=== PATIENT | male | born 1970 | race Caucasian/White ===

== ENCOUNTER 2023-10-24 21:48 | Emergency (ER) | payer OTHER, SELFPAY ==
[2023-10-24] VITALS (13 sets, daily range): BP systolic 106–133; BP diastolic 64–66; PULSE 73–89; RESP 15–18; TEMP 37–38.6; O2SAT 92–96; BMI 34.9
--- NOTE | 2023-10-24 22:08 | ED.FEVER ---
HPI - Fever General Time Seen by Provider: 22:08 Date Seen: 10/24/23 Chief Complaint: Fever Stated Complaint: fever Time Seen by Provider: 10/24/23 22:08 Source: patient and RN notes reviewed Mode of arrival: ambulatory Limitations: no limitations History of Present Illness HPI Narrative: This 53-year-old male is coming to the ER with fever up to 102 at home earlier today, progressive weakness. He did take 1200 mg Tylenol at home about an hour and half ago. He has been running fevers for probably about the last week. He has noticed some increased drainage from his prior trach site but it is not odorous, not colored. He has thyroid cancer history and had a thyroidectomy at [facility] in September 02 2023, this was complicated by a trach which has subsequently been removed. He is felt run down this last week, some intermittent lower abdominal pain, some diarrhea yesterday. No diarrhea today. No nausea but diminished appetite. His notes that his sugars have been running high despite not eating much. His appetite has been diminished. No vomiting. No noted urinary symptoms. He is not started on any treatments, she states they will follow-up in October, wanted 8 weeks for everything to heal. He does cough from having had the trach, they do not necessarily think that this is worse than what he has been. MD elicited complaint: fever, malaise and weakness Pertinent past history: diabetes Treatments prior to arrival fever: acetaminophen Related Data Home Medications ?Medication ?Instructions ?Recorded ?Confirmed aspirin 81 mg tablet,delayed 81 mg PO DAILY 10/24/23 10/24/23 release (Adult Aspirin Regimen) atorvastatin 80 mg tablet 80 mg PO DAILY 10/24/23 10/24/23 calcitriol 0.5 mcg capsule 0.5 mcg PO DAILY 10/24/23 10/24/23 insulin glargine subcut 10/24/23 levothyroxine 200 mcg tablet 200 mcg PO DAILY 10/24/23 10/24/23 (Euthyrox) lisinopril 40 mg tablet 40 mg PO DAILY 10/24/23 10/24/23 metformin 500 mg tablet 500 mg PO BID 10/24/23 10/24/23 metoprolol succinate 25 mg capsule 25 mg PO DAILY 10/24/23 10/24/23 sprinkle, ext. release 24 hr (Kapspargo Sprinkle) Previous Rx's ?Medication ?Instructions ?Recorded ciprofloxacin HCl 500 mg tablet 500 mg PO BID #13 tabs 10/24/23 Allergies Allergy/AdvReac Type Severity Reaction Status Date / Time No Known Drug Allergies Allergy Verified 10/24/23 22:54 Review of Systems Status of ROS Reports: 6 or more systems reviewed and unremarkable except as noted in History and below [facility] Medical History (Updated 10/24/23 @ 23:47 by Sonia Enamorado MD) Thyroid cancer ?C73 - Malignant neoplasm of thyroid gland (ICD-10) Social History Non-prescribed substance use: denies use Exam Const Vital Signs, click to edit/add: Vital Signs - 24 hr 10/24/23 21:59 10/24/23 22:14 10/24/23 22:37 Temperature 101.4 F H 101.4 F H Pulse Rate Pulse Rate [Pulse Oximeter] 89 Respiratory Rate 18 18 Blood Pressure Blood Pressure [Right Upper Arm] 133/64 Pulse Oximetry 92 93 93 Oxygen Delivery Method Room Air Room Air 10/24/23 22:56 10/24/23 23:00 10/24/23 23:07 Temperature Pulse Rate 76 76 74 Pulse Rate [Pulse Oximeter] Respiratory Rate 15 Blood Pressure 122/66 Blood Pressure [Right Upper Arm] Pulse Oximetry 93 94 94 Oxygen Delivery Method This 53-year-old male is alert, interactive, no apparent distress, was ambulatory into the ED of his own accord, gait looked normal. Sclera clear, conjugate gaze. Symmetrical facial function. Neck has anterior scar that is reddish but very slender linear, looks to be healing. In the center you can still see small opening with a little bit of white mucoid non odorous material, no significant swelling or erythema. Lungs are clear, good air entry, no wheezing or crackles. CV regular rate and rhythm, no murmur. Abdomen is soft, no rebound or guarding, no organomegaly. He has no lower extremity edema. Documenting provider has reviewed patient's vital signs: yes Course Course ED Course: This is a 53-year-old male with recent surgery and fevers for about a week. Will certainly do the triple viral swab. Will place an IV get blood work in give him a L of normal saline. He is not hypotensive, not tachycardic, not meeting criteria based on vitals for sepsis but he is febrile. Will await our initial workup labs, blood culture is not being done due to his stability and the significant shortage of blood cultures that we are under. If his lactate or procalcitonin or other findings on his workup dictate, will consider doing blood cultures. Have discussed with him that we do need urine. We will also do chest abdomen pelvis imaging with CT looking for focus of infection. Reevaluation(s) Time of Reevaluation #1: 23:04 Reevaluation #1: Ordered 2 g IV Rocephin for urinalysis that is most definitely consistent with UTI. On brief visualization of his CT images, do see thickened bladder. Await Radiology over-read on this. Still awaiting labs as well. Time of Reevaluation #2: 23:42 Reevaluation #2: Reviewed CT report with patient and his . He has UTI with [place] into bilateral pyelonephritis. He states he is actually feeling a little better. He would like to try to go home. They were aware that he has metastatic thyroid cancer. Did give them a copy of the CT report which delineates pulmonary nodules. He is receiving his Rocephin, will initiate Cipro orally outpatient, have reviewed this. The understand that if he is not improving in or is at all worsening, he will need hospitalization. His reassures me that she would get him either back here or down to male if there are any further concerns. Urine culture will probably not be back until Thursday morning sometime. Patient was offered hospitalization but as stated before, he prefers to try to go home. I do think that this is reasonable given use of Cipro which by availability is same for oral verses IV. Again, he states he is feeling a bit better with IV fluids and he is near completing his Rocephin. Vital Signs Vital signs: Initial Vital Signs Temperature 101.4 F H 10/24/23 21:59 Temperature Source Temporal Artery Scan 10/24/23 21:59 Pulse Rate 89 10/24/23 21:59 Respiratory Rate 18 10/24/23 21:59 Blood Pressure 133/64 10/24/23 21:59 Blood Pressure Mean 87 10/24/23 21:59 Blood Pressure Position Supine 10/24/23 21:59 Pulse Oximetry 92 10/24/23 21:59 Oxygen Delivery Method Room Air 10/24/23 21:59 Vital Signs Temperature 101.4 F H 10/24/23 21:59 Pulse Rate 89 10/24/23 21:59 Respiratory Rate 18 10/24/23 21:59 Blood Pressure 133/64 10/24/23 21:59 Pulse Oximetry 92 10/24/23 21:59 Oxygen Delivery Method Room Air 10/24/23 21:59 Temperature 101.4 F H 10/24/23 22:37 Pulse Rate 74 10/24/23 23:07 Respiratory Rate 15 10/24/23 23:07 Blood Pressure 122/66 10/24/23 23:07 Pulse Oximetry 94 10/24/23 23:07 Oxygen Delivery Method Room Air 10/24/23 22:37 Medications Administered Medications: Discontinued Medications Generic Name Dose Route Start Last Admin Trade Name Freq PRN Reason Stop Dose Admin Sodium Chloride 1,000 mls @ 1,000 mls/hr 10/24/23 22:16 10/24/23 22:34 0.9 % Sodium Chloride 1000 Ml IV 10/24/23 23:15 1,000 mls/hr .Q1H JOJO Administration MDM - Fever Lab Data Attestation: I reviewed the patient's lab results. Labs: Lab Results 10/24/23 Range/Units 22:31 WBC 17.74 H (4.50-11.00) K/uL RBC 3.99 L (4.30-5.90) m/uL Hgb 11.8 L (13.5-17.5) gm/dL Hct 35.3 L (37.0-53.0) % MCV 89 (80-100) fL MCH 30 (26-34) pg MCHC 33 (32-36) gm/dL RDW Coeff of Shimon 12.9 (11.5-15.5) % Plt Count 285 (140-440) K/uL Neut % (Auto) 80.9 H (42.0-72.0) % Lymph % (Auto) 6.3 L (20-44) % [place] % (Auto) 11.0 (0.0-11.0) % Eos % (Auto) 0.2 (0.0-7.0) % Baso % (Auto) 0.1 (0.0-3.0) % Neut # (Auto) 14.40 H (1.7-7.0) K/uL Lymph # (Auto) 1.10 (0.90-2.90) K/uL [place] # (Auto) 2.00 H (0.00-0.90) K/UL Eos # (Auto) 0.00 (0.00-0.50) K/uL Baso # (Auto) 0.00 (0.00-0.30) K/uL Abs Immat Gran (auto) 0.30 (0.00-0.30) K/uL Imm/Tot Granulo (auto) 1.5 % Sodium 134 L (135-149) mmol/L Potassium 3.9 (3.6-5.1) mmol/L Chloride 100 (96-114) mmol/L Carbon Dioxide 26 (20-32) mmol/L Anion Gap 8 (7-15) mEq/L BUN 13 (7-30) mg/dL Creatinine 0.8 (0.5-1.5) mg/dL Estimated Creat Clear 121.30 Estimated GFR 105 ml/min Glucose 235 H (60-115) mg/dL Lactate 1.3 (0.5-1.9) mmol/L Calcium 9.6 (8.4-10.6) mg/dL Total Bilirubin 0.8 (0.1-1.5) mg/dL AST 16 (12-35) U/L ALT 17 (4-50) U/L Alkaline Phosphatase 87 (40-150) U/L C-Reactive Protein 21.0 H (0.5-1.0) mg/dL Total Protein 7.7 (6.0-8.3) g/dL Albumin 4.2 (3.3-5.0) g/dL Procalcitonin 0.36 (<0.50) ng/mL Urine Color Yellow (Yellow) Urine Appearance Cloudy A (Clear) Urine pH 5.5 (5.0-8.5) Ur Specific [place] 1.015 (1.000-1.030) Urine Protein 1+ A (Negative) Urine Glucose (UA) Negative (Negative) Urine Ketones Negative (Negative) Urine Blood 2+ A (Negative) Urine Nitrite Positive A (Negative) Urine Bilirubin Negative (Negative) Urine Urobilinogen 0.2 (0.2-1.0) Ur Leukocyte Esterase 1+ A (Negative) Urine RBC 0-2 (0-2) Urine WBC 25-50 A (0-5) Ur Squamous Epith Cells None (None-Few) Urine Bacteria Many A (None) Fine Granular Casts Few A (None) Imaging Data CT Chest/Ab/Pelvis: Attestation: I have reviewed the pertinent imaging results. Radiologist's impression: Patient: BATOOL LEE Facility:?[facility] Patient ID:?[id number] Site Patient ID:?[id number]. Site :?[id number] Study:?CT-Chest/Abd/Pelvis w/ 133cc isovue 370-10/24/2023 11:01:15 PM Ordering Physician:?Kelsea Scott Final Report: INDICATION: fever, unknown source, inc d/c from trach site, some abd pain, frequent urination. hx thyroid cancer. TECHNIQUE: CT chest, abdomen and pelvis acquired 100 cc Omnipaque 350 IV contrast. COMPARISON: None. FINDINGS: CHEST: Cardiovascular structures: Heart size is normal. Thoracic aorta and main pulmonary artery are normal in caliber. Mediastinum and aaron: No mass or adenopathy. Lungs and pleura: No consolidation to suggest pneumonia. There are multiple bilateral small solid nodules (greater than 20), for example right middle lobe, 6 millimeters (3/50), and left lower lobe, 6 millimeters (3/58). Small focus peripheral nodularity in the superior most aspect of the visualized trachea may reflect mucous. The tracheostomy site is outside of the field of view. Chest wall and axilla: No mass or adenopathy. Bones: No suspicious bone lesions. Unremarkable for age. ABDOMEN AND PELVIS: Liver: Unremarkable. Gallbladder and bile ducts: Unremarkable. Pancreas: Unremarkable. Spleen: Unremarkable. Adrenal glands: Unremarkable. Kidneys: Multiple bilateral small foci of corticomedullary differentiation loss. There is also moderate bilateral perinephric stranding. GI tract: Unremarkable. Vascular structures: Unremarkable. Lymph nodes: Unremarkable. Peritoneum/Retroperitoneum/Abdominal Wall: Unremarkable. No free air or significant free fluid. Pelvic Organs: Severe urinary bladder wall thickening. Bones and superficial soft tissues: No suspicious bone lesions. Diffuse osseous demineralization. IMPRESSION: 1. Findings concerning for acute cystitis with an ascending urinary tract infection and bilateral acute pyelonephritis. No evidence of perinephric abscess formation. 2. Multiple bilateral solid pulmonary nodules (greater than 20), concerning for possible metastases in the setting of reported malignancy. Please note that all CT scans at this facility use dose modulation, iterative reconstruction, and/or weight-based dosing when appropriate to reduce radiation dose to as low as reasonably achievable. Dictated by Prasanth Amaro MD @ 10/24/2023 11:28:26 PM ----- ADDENDUM ----- These findings were discussed with Dr. Enamorado 11:29 PM on 10/24/2023 Dictated by Prasanth Amaro MD @ Oct 24 2023 11:34PM (Electronic Signature) Discharge Plan Discharge Clinical Impression: Pyelonephritis, Cystitis Patient Disposition: Home, Self-Care Condition: Stable Instructions: Urinary Tract Infection in Men (DC), Kidney Infection (ED) Additional Instructions: Continue with Cipro to treat this infection. Get scheduled for a follow-up visit with your primary care provider next week for recheck after ER visit. If you are not improving over the next couple of days, have concerns for worsening at any point, do need to be re-evaluated. Fevers with pyelonephritis can sometimes last 3-5 days but should overall be improving and not worsening. Once the culture result is back, we will contact you if there should be a need to change antibiotics. Activity Level: Activity as Tolerated Prescriptions: New ciprofloxacin HCl 500 mg tablet 500 mg PO BID Qty: 13 0RF No Action Kapspargo Sprinkle 25 mg capsule,sprinkle,ER 24hr 25 mg PO DAILY lisinopril 40 mg tablet 40 mg PO DAILY atorvastatin 80 mg tablet 80 mg PO DAILY metformin 500 mg tablet 500 mg PO BID aspirin [Adult Aspirin Regimen] 81 mg tablet,delayed release (DR/EC) 81 mg PO DAILY calcitriol 0.5 mcg capsule 0.5 mcg PO DAILY levothyroxine [Euthyrox] 200 mcg tablet 200 mcg PO DAILY insulin glargine [Lantus Solostar U-100 Insulin] subcut Follow Up/Referrals: Provider,Not a Local [Primary Care Provider] - Stand Alone Forms: MyHealth Info Instructions
--- NOTE | 2023-10-24 22:15 | CRLHL7_ITS ---
For Patients: As a result of the Century Cures Act, medical imaging exams and procedure reports are released immediately into your electronic medical record. You may view this report before your referring provider. If you have questions, please contact your health care provider. INDICATION: fever, unknown source, inc d/c from trach site, some abd pain, frequent urination. hx thyroid cancer. TECHNIQUE: CT chest, abdomen and pelvis acquired 100 cc Omnipaque 350 IV contrast. COMPARISON: None. FINDINGS: CHEST: Cardiovascular structures: Heart size is normal. Thoracic aorta and main pulmonary artery are normal in caliber. Mediastinum and aaron: No mass or adenopathy. Lungs and pleura: No consolidation to suggest pneumonia. There are multiple bilateral small solid nodules (greater than 20), for example right middle lobe, 6 millimeters (3/50), and left lower lobe, 6 millimeters (3/58). Small focus peripheral nodularity in the superior most aspect of the visualized trachea may reflect mucous. The tracheostomy site is outside of the field of view. Chest wall and axilla: No mass or adenopathy. Bones: No suspicious bone lesions. Unremarkable for age. ABDOMEN AND PELVIS: Liver: Unremarkable. Gallbladder and bile ducts: Unremarkable. Pancreas: Unremarkable. Spleen: Unremarkable. Adrenal glands: Unremarkable. Kidneys: Multiple bilateral small foci of corticomedullary differentiation loss. There is also moderate bilateral perinephric stranding. GI tract: Unremarkable. Vascular structures: Unremarkable. Lymph nodes: Unremarkable. Peritoneum/Retroperitoneum/Abdominal Wall: Unremarkable. No free air or significant free fluid. Pelvic Organs: Severe urinary bladder wall thickening. Bones and superficial soft tissues: No suspicious bone lesions. Diffuse osseous demineralization. IMPRESSION: 1. Findings concerning for acute cystitis with an ascending urinary tract infection and bilateral acute pyelonephritis. No evidence of perinephric abscess formation. 2. Multiple bilateral solid pulmonary nodules (greater than 20), concerning for possible metastases in the setting of reported malignancy. Please note that all CT scans at this facility use dose modulation, iterative reconstruction, and/or weight-based dosing when appropriate to reduce radiation dose to as low as reasonably achievable. Dictated by Prasanth Amaro MD @ 10/24/2023 11:28:26 PM (Electronically Signed)
[2023-10-24] MEDS: 0.9 % SODIUM CHLORIDE 1000 ml 1,000 ML IV (22:34)
[2023-10-24 22:38] LABS: Lactate* 1.3 mmol/L (0.5-1.9)
[2023-10-24 22:45] LABS: Appearance Urine Cloudy (Clear); Bilirubin Urine Negative (Negative); Blood Urine 2+ (Negative); Color Urine Yellow (Yellow); Glucose Urine Negative (Negative); Ketones Urine Negative (Negative); Leukocyte Esterase Urine 1+ (Negative); Nitrite Urine Positive (Negative); Protein Urine 1+ (Negative); Specific Gravity Urine 1.015 (1.000-1.030); Urobilinogen Urine 0.2 (0.2-1.0); pH Urine 5.5 (5.0-8.5)
[2023-10-24 22:52] LABS: Chloride* 100 mmol/L (96-114)
[2023-10-24 22:53] LABS: Albumin* 4.2 g/dL (3.3-5.0); Bacteria Urine Many; Fine Granular Casts Urine Few; Potassium* 3.9 mmol/L (3.6-5.1); RBC Urine 0-2 (0-2); Sodium* 134 mmol/L (135-149); WBC Urine 25-50 (0-5)
[2023-10-24 22:56] LABS: Alanine Aminotransferase* 17 U/L (4-50); Alkaline Phosphatase* 87 U/L (40-150); Anion Gap 8 mEq/L (7-15); Aspartate Amino Transferase* 16 U/L (12-35); Bilirubin Total* 0.8 mg/dL (0.1-1.5); Blood Urea Nitrogen* 13 mg/dL (7-30); Carbon Dioxide* 26 mmol/L (20-32); Creatinine* 0.8 mg/dL (0.5-1.5); Estimated Glomerular Filt Rate 105 ml/min; Total Protein* 7.7 g/dL (6.0-8.3)
[2023-10-24 22:57] LABS: Calcium* 9.6 mg/dL (8.4-10.6); Glucose* 235 mg/dL (60-115)
[2023-10-24 23:02] LABS: Basophils Percent Auto 0.1 % (0.0-3.0); Eosinophils Percent Auto 0.2 % (0.0-7.0); Hematocrit 35.3 % (37.0-53.0); Hemoglobin* 11.8 gm/dL (13.5-17.5); Immature Granulocytes Pct Auto 1.5 %; Lymphocytes Percent Auto 6.3 % (20-44); Mean Corpuscular HGB Conc 33 gm/dL (32-36); Mean Corpuscular Hemoglobin 30 pg (26-34); Mean Corpuscular Volume 89 fL (80-100); Neutrophils Percent Auto 80.9 % (42.0-72.0); Platelet Count* 285 K/uL (140-440); RDW Coefficient of Variation % 12.9 % (11.5-15.5); Red Blood Count 3.99 m/uL (4.30-5.90); White Blood Count* 17.74 K/uL (4.50-11.00)
[2023-10-24 23:08] LABS: Slide Review Reflex No
[2023-10-24 23:13] LABS: Procalcitonin* 0.36 ng/mL (<0.50)
[2023-10-24] MEDS: cefTRIAXone 2 GM in 0.9 % SODIUM CHLORIDE Mini-bag 100 ML IVPB (23:30)
[2023-10-24] MEDS: CIPROFLOXACIN 500 MG TABLET PO (23:58)
[2023-10-25] VITALS: PULSE 72; O2SAT 95
[2023-10-25 00:03] VITALS: BP 124/78; PULSE 71; O2SAT 95
[2023-10-25 00:39] LABS: PCR FLU A Negative PCR FLU A (Negative); PCR FLU B Negative PCR FLU B (Negative); PCR RSV Negative PCR RSV (Negative); SARS PCR* Negative SARS-CoV-2 (Negative)
== END 2023-10-25 00:20 | disposition home or self-care (01) ==
PROVIDERS: Emergency Provider Family Medicine
DX: I80.8 Phlebitis and thrombophlebitis of other sites (principal); N30.90 Cystitis, unspecified without hematuria
CPT/HCPCS: 36415; 71260; 74177; 80053; 81001; 83605; 84145; 85025; 86140; 87086; 87186; 87631; 94761; 96365; 99285; A9270; J0696; J7030; Q9967

== ENCOUNTER 2023-10-25 16:36 | Inpatient (IN) | payer OTHER, SELFPAY ==
[2023-10-25] VITALS (10 sets, daily range): BP systolic 104–132; BP diastolic 59–73; PULSE 74–95; RESP 14–24; TEMP 36.9–38.7; O2SAT 94–99; BMI 34.8; BMI 35.3
[2023-10-25 17:19] LABS: Basophils Percent Auto 0.1 % (0.0-3.0); Eosinophils Percent Auto 0.1 % (0.0-7.0); Hematocrit 31.8 % (37.0-53.0); Hemoglobin* 10.6 gm/dL (13.5-17.5); Immature Granulocytes Pct Auto 0.9 %; Lymphocytes Percent Auto 3.8 % (20-44); Mean Corpuscular HGB Conc 33 gm/dL (32-36); Mean Corpuscular Hemoglobin 30 pg (26-34); Mean Corpuscular Volume 89 fL (80-100); Monocytes Percent Auto 9.8 % (0.0-11.0); Neutrophils Percent Auto 85.3 % (42.0-72.0); Platelet Count* 246 K/uL (140-440); RDW Coefficient of Variation % 12.7 % (11.5-15.5); Red Blood Count 3.59 m/uL (4.30-5.90); Slide Review Reflex No; White Blood Count* 15.25 K/uL (4.50-11.00)
[2023-10-25] MEDS: 0.9 % SODIUM CHLORIDE 1000 ml 1,000 ML IV (17:19)
[2023-10-25 17:31] LABS: Chloride* 98 mmol/L (96-114); Potassium* 3.8 mmol/L (3.6-5.1); Sodium* 131 mmol/L (135-149)
[2023-10-25 17:34] LABS: Creatinine* 0.7 mg/dL (0.5-1.5); Est. Creatinine Clearance* 138.63; Estimated Glomerular Filt Rate 109 ml/min
[2023-10-25 17:35] LABS: Anion Gap 9 mEq/L (7-15); Blood Urea Nitrogen* 11 mg/dL (7-30); Calcium* 8.9 mg/dL (8.4-10.6); Carbon Dioxide* 24 mmol/L (20-32); Glucose* 284 mg/dL (60-115)
[2023-10-25 17:49] LABS: C Reactive Protein* 26.5 mg/dL (0.5-1.0)
--- NOTE | 2023-10-25 17:54 | ED_ITS ---
HPI - General Adult General Chief complaint: Urogenital Problems, Male Stated complaint: fever spike, pain in kidney, return from last nigh Time Seen by Provider: 10/25/23 16:43 Source: patient Mode of arrival: ambulatory Limitations: no limitations History of Present Illness HPI narrative: 53-year-old male presenting today not feeling well. He was seen yesterday and diagnosed with pyelonephritis. He received Rocephin in the ED yesterday was sent home with Cipro. Since discharge she has been feeling worse, with increasing left-sided flank pain, weakness. Fever has gotten as high as 103 at home. Related Data Home Medications ?Medication ?Instructions ?Recorded ?Confirmed aspirin 81 mg tablet,delayed 81 mg PO DAILY 10/24/23 10/24/23 release (Adult Aspirin Regimen) atorvastatin 80 mg tablet 80 mg PO DAILY 10/24/23 10/24/23 calcitriol 0.5 mcg capsule 0.5 mcg PO DAILY 10/24/23 10/24/23 insulin glargine subcut 10/24/23 levothyroxine 200 mcg tablet 200 mcg PO DAILY 10/24/23 10/24/23 (Euthyrox) lisinopril 40 mg tablet 40 mg PO DAILY 10/24/23 10/24/23 metformin 500 mg tablet 500 mg PO BID 10/24/23 10/24/23 metoprolol succinate 25 mg capsule 25 mg PO DAILY 10/24/23 10/24/23 sprinkle, ext. release 24 hr (Kapspargo Sprinkle) Previous Rx's ?Medication ?Instructions ?Recorded ciprofloxacin HCl 500 mg tablet 500 mg PO BID #13 tabs 10/24/23 Allergies Allergy/AdvReac Type Severity Reaction Status Date / Time No Known Drug Allergies Allergy Verified 10/25/23 16:48 Review of Systems Status of ROS: Reports: 10 or more systems reviewed and unremarkable except as noted in History and below [facility] Medical History Thyroid cancer ?C73 - Malignant neoplasm of thyroid gland (ICD-10) Social History Smoking Status: Smoker, status unknown Non-prescribed substance use: denies use Exam Narrative: Exam Narrative: Well-nourished well-developed patient in no acute distress. Alert and oriented. Answers questions appropriately. Mood and affect are appropriate. Thoughts are goal oriented and rational. No tangential or magical thinking noted. Patient speaks in full sentences without needing to catch his breath. Patient is clammy and slightly diaphoretic. HEENT: Normocephalic atraumatic. Pupils are equally round reactive to light. Extraocular muscles are intact. Conjunctivae are moist without any icterus noted. Moist mucous membranes. Posterior pharynx is normal. Neck is soft, anterior scar that is healing appropriately. Cardiovascular: Heart is regular rate and rhythm S1 and S2 are present without any murmurs. Lungs: Clear to auscultation bilaterally no wheezes rhonchi or rales are appreciated. Patient takes deep breaths without any discomfort. Abdomen: Soft and nontender nondistended with normal bowel sounds. No guarding or rebound. No masses or organomegaly appreciated. He does have left-sided CVA tenderness. Extremities: Bilateral lower extremities are without edema. Skin: Well perfused. Const: Vital Signs, click to edit/add: Vital Signs - 24 hr 10/25/23 16:45 10/25/23 17:20 Temperature 99.7 F H Pulse Rate [Pulse Oximeter] 95 Respiratory Rate 24 Blood Pressure [[facility] Upper Arm] 104/70 Pulse Oximetry 98 96 Oxygen Delivery Me thod Room Air Course Course ED Course: Patient's vital signs have changed since yesterday. His blood pressure has gone down about 20 points systolic and his pulse has gone up about 20 beats per minute. IV is established and patient given a L of normal saline and antibiotics are started right away with imipenem. Repeated blood work shows white count has gone down slightly, however CRP has gone up slightly. CT scan is reviewed from yesterday showing cystitis and bilateral p yelonephritis. Given the patient's change in vital signs and generalized feeling worse, patient will be admitted for further management. Vital Signs Vital signs: Initial Vital Signs Temperature 99.7 F H 10/25/23 16:45 Temperature Source Oral 10/25/23 16:45 Pulse Rate 95 10/25/23 16:45 Pulse Rhythm Regular 10/25/23 16:45 Respiratory Rate 24 10/25/23 16:45 Blood Pressure 104/70 10/25/23 16:45 Blood Pressure Mean 81 10/25/23 16:45 Blood Pressure Position Sitting 10/25/23 16:45 Pulse Oximetry 98 10/25/23 16:45 Oxygen Delivery Method Room Air 10/25/23 16:45 Vital Signs Temperature 99.7 F H 10/25/23 16:45 Pulse Rate 95 10/25/23 16:45 Respiratory Rate 24 10/25/23 16:45 Blood Pressure 104/70 10/25/23 16:45 Pulse Oximetry 98 10/25/23 16:45 Oxygen Delivery Method Room Air 10/25/23 16:45 Temperature 99.7 F H 10/25/23 16:45 Pulse Rate 95 10/25/23 16:45 Respiratory Rate 24 10/25/23 16:45 Blood Pressure 104/70 10/25/23 16:45 Pulse Oximetry 96 10/25/23 17:20 Oxygen Delivery Method Room Air 10/25/23 16:45 Medications Administered Medications: Generic Name Dose Route Start Last Admin Trade Name Freq PRN Reason Stop Dose Admin Sodium Chloride 1,000 mls @ 1,000 mls/hr 10/25/23 17:00 10/25/23 17:19 0.9 % Sodium Chloride 1000 Ml IV 10/25/23 17:59 1,000 mls/hr .Q1H JOJO Administration Discontinued Medications Generic Name Dose Route Start Last Admin Trade Name Freq PRN Reason Stop Dose Admin Imipenem/Cilastatin Sodium 500 100 mls @ 200 mls/hr 10/25/23 16:56 10/25/23 17:47 mg/ Sodium Chloride IVPB 10/25/23 16:57 200 mls/hr ONCE ONE Administration Medical Decision Making MDM Narrative Medical decision making narrative: 53-year-old male with pyelonephritis. Patient will be admitted. Lab Data Lab results reviewed: Yes I reviewed the patient's lab results Labs: Lab Results 10/25/23 Range/Units 17:10 WBC 15.25 H (4.50-11.00) K/uL RBC 3.59 L (4.30-5.90) m/uL Hgb 10.6 L (13.5-17.5) gm/dL Hct 31.8 L (37.0-53.0) % MCV 89 (80-100) fL MCH 30 (26-34) pg MCHC 33 (32-36) gm/dL RDW Coeff of Shimon 12.7 (11.5-15.5) % Plt Count 246 (140-440) K/uL Neut % (Auto) 85.3 H (42.0-72.0) % Lymph % (Auto) 3.8 L (20-44) % [place] % (Auto) 9.8 (0.0-11.0) % Eos % (Auto) 0.1 (0.0-7.0) % Baso % (Auto) 0.1 (0.0-3.0) % Neut # (Auto) 13.00 H (1.7-7.0) K/uL Lymph # (Auto) 0.60 L (0.90-2.90) K/uL [place] # (Auto) 1.50 H (0.00-0.90) K/UL Eos # (Auto) 0.00 (0.00-0.50) K/uL Baso # (Auto) 0.00 (0.00-0.30) K/uL Abs Immat Gran (auto) 0.10 (0.00-0.30) K/uL Imm/Tot Granulo (auto) 0.9 % Sodium 131 L (135-149) mmol/L Potassium 3.8 (3.6-5.1) mmol/L Chloride 98 (96-114) mmol/L Carbon Dioxide 24 (20-32) mmol/L Anion Gap 9 (7-15) mEq/L BUN 11 (7-30) mg/dL Creatinine 0.7 (0.5-1.5) mg/dL Estimated Creat Clear 138.63 Estimated GFR 109 ml/min Glucose 284 H (60-115) mg/dL Calcium 8.9 (8.4-10.6) mg/dL C-Reactive Protein 26.5 H (0.5-1.0) mg/dL Discharge Plan Discharge Clinical Impression: Pyelonephritis, Cystitis Patient Disposition: Admitted As Observation Condition: Stable Prescriptions: No Action Kapspargo Sprinkle 25 mg capsule,sprinkle,ER 24hr 25 mg PO DAILY lisinopril 40 mg tablet 40 mg PO DAILY atorvastatin 80 mg tablet 80 mg PO DAILY metformin 500 mg tablet 500 mg PO BID aspirin [Adult Aspirin Regimen] 81 mg tablet,delayed release (DR/EC) 81 mg PO DAILY calcitriol 0.5 mcg capsule 0.5 mcg PO DAILY levothyroxine [Euthyrox] 200 mcg tablet 200 mcg PO DAILY insulin glargine [Lantus Solostar U-100 Insulin] subcut ciprofloxacin HCl 500 mg tablet 500 mg PO BID Qty: 13 0RF Follow Up/Referrals: Provider,Not a Local [Primary Care Provider] -
--- NOTE | 2023-10-25 18:45 | P.IMHP_ITS ---
Hospitalist- H&P: HPI History of Present Illness Date Seen: 10/25/23 Chief complaint: fever spike, pain in kidney, return from last nigh Narrative: Levi Cat is a 53 year old male with diabetes mellitus, coronary artery disease, hypertension and metastatic papillary thyroid cancer admitted through the emergency department with ongoing fever suspected secondary to pyelonephritis. He was offered hospitalization yesterday but was discharged to home when he felt better after fluids and antibiotics. Overnight he became profoundly weak. Too weak to get out of bed this morning so his brought him back to the emergency department. Yesterday he was seen in our emergency room with a fever. He had been having a fever for up to a week prior to admission. He had no other obvious signs of infection. He does have chronic urinary hesitancy and poor urine stream and that might be a little bit worse recently as well. In August he had surgery on his thyroid in ended up with a tracheostomy. September 20 the tracheostomy was removed and he has had some drainage from that site but no other obvious infection, trouble swallowing or trouble breathing or pain. He has not had significant cough. He reports he has been eating normally. Bowel function has been normal. He reports chronic urinary problems in the remote past sees seen a urologist in [place] who diagnosed him with narrowing of his urethra. He does not have a diagnosis of BPH. He has been told he has a thickened bladder wall in the past. His blood sugars have been generally well controlled until he became sick when his blood sugars got higher despite the fact that he was eating much less. In August he was at [place] for surgery for papillary thyroid cancer. In that surgery they removed his thyroid and 51 lymph nodes. His cancer is also metastatic to his lungs. During the surgery he had injury to his vocal cords and also had injury to his left jugular vein requiring ligation. 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 Tracheostomy was removed at the beginning of September and the opening there is still draining. He cannot breathe through that opening. It is slowly closing. In [place] in the past he saw a urologist who told him he had narrowing of his urethra thought secondary to excess sweets in his diet. He has never been told he has BPH. He has been told he has thickened bladder wall. He does report that he has a poor urine stream with urgency and hesitancy. Review of Systems Narrative: Generally reportedly well except for recent symptoms outlined above [facility] Medical History (Updated 10/25/23 @ 19:02 by Carlos Arrieta MD) Lower urinary tract symptoms (LUTS) ?R39.9 - Unspecified symptoms and signs involving the genitourinary system (ICD-10) Coronary artery disease ?I25.10 - Atherosclerotic heart disease of [place] coronary artery without angina pectoris (ICD-10) Hypertension ?I10 - Essential (primary) hypertension (ICD-10) Diabetes mellitus ?E11.9 - Type 2 diabetes mellitus without complications (ICD-10) Thyroid cancer ?C73 - Malignant neoplasm of thyroid gland (ICD-10) Surgical History (Updated 10/25/23 @ 18:55 by Carlos Arrieta MD) History of thyroidectomy, total ?E89.0 - Postprocedural hypothyroidism (ICD-10) H/O lumbosacral spine surgery ?Z98.890 - Other specified postprocedural states (ICD-10) History of coronary artery stent placement ?Z95.5 - Presence of coronary angioplasty implant and graft (ICD-10) Social History (Updated 10/25/23 @ 18:56 by Carlos Arrieta MD) Narrative: He lives in [place] with his . Primary care is through [facility] in [place]. Specialty care through [facility] in [place]. He does not smoke. He rarely drinks alcohol. 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 Code status is full. Smoking Status: Smoker, status unknown Non-prescribed substance use: denies use Meds Home Medications and Allergies Home Medications ?Medication ?Instructions ?Recorded ?Confirmed ?Type aspirin 81 mg tablet,delayed 81 mg PO DAILY 10/24/23 10/25/23 History release (Adult Aspirin Regimen) atorvastatin 80 mg tablet 80 mg PO DAILY 10/24/23 10/25/23 History calcitriol 0.5 mcg capsule 0.5 mcg PO DAILY 10/24/23 10/24/23 History insulin glargine See Rx Instructions subcut .COMPLEX 10/24/23 10/25/23 History levothyroxine 200 mcg tablet 200 mcg PO DAILY 10/24/23 10/25/23 History (Euthyrox) lisinopril 40 mg tablet 40 mg PO DAILY 10/24/23 10/25/23 History metformin 500 mg tablet 500 mg PO BID 10/24/23 10/25/23 History metoprolol succinate 25 mg capsule 25 mg PO BID 10/24/23 10/25/23 History sprinkle, ext. release 24 hr ([place] Sprinkle) Allergies Allergy/AdvReac Type Severity Reaction Status Date / Time No Known Drug Allergies Allergy Verified 10/25/23 16:48 Exam Narrative: Exam Narrative: He is alert and appears in no distress. Hoarseness noted secondary to report of vocal cord injury from thyroid cancer surgery. Eyes normal. Oropharynx normal. Neck is supple without mass or adenopathy. Tracheostomy site is healing with minimal erythema and minimal clear to whitish drainage. Respirations are clear to auscultation. Cardiovascular: S1, S2, regular rate and rhythm. Abdomen: Bowel sounds active. Abdomen is soft. He has mild tenderness in both flanks and mild tenderness in suprapubic area. There is no focal mass and no peritonitis. External genitalia normal. Extremities normal. No edema. Intact pulses. He has diminished sensation in both great toes which she attributes to spine surgery rather than diabetes neuropathy. Const: Vital Signs, click to edit/add: Vital Signs - 24 hr 10/25/23 16:45 10/25/23 17:20 10/25/23 17:35 Temperature 99.7 F H Pulse Rate 77 Pulse Rate [Pulse Oximeter] 95 Respiratory Rate 24 16 Blood Pressure 104/59 L Blood Pressure [Ri ght Upper Arm] 104/70 Pulse Oximetry 98 96 95 Oxygen Delivery Me thod Room Air 10/25/23 18:03 10/25/23 18:17 Temperature Pulse Rate 75 76 Pulse Rate [Pulse Oximeter] Respiratory Rate 16 14 Blood Pressure 119/63 132/64 Blood Pressure [Ri ght Upper Arm] Pulse Oximetry 99 97 Oxygen Delivery Me thod Room Air Documenting provider has reviewed patient's vital signs: yes Hospitalist - H&P: Result Labs Labs: Short CBC 10/25/23 Range/Units 17:10 WBC 15.25 H (4.50-11.00) K/uL Hgb 10.6 L (13.5-17.5) gm/dL Hct 31.8 L (37.0-53.0) % Plt Count 246 (140-440) K/uL [facility] 10/25/23 17:10 Sodium 131 L Potassium 3.8 Chloride 98 Carbon Dioxide 24 BUN 11 Creatinine 0.7 Glucose 284 H Calcium 8.[address] Chest/Ab/Pelvis: Radiologist's impression: INDICATION: fever, unknown source, inc d/c from trach site, some abd pain, frequent urination. hx thyroid cancer. TECHNIQUE: CT chest, abdomen and pelvis acquired 100 cc Omnipaque 350 IV contrast. COMPARISON: None. FINDINGS: CHEST: Cardiovascular structures: Heart size is normal. Thoracic aorta and main pulmonary artery are normal in caliber. Mediastinum and aaron: No mass or adenopathy. Lungs and pleura: No consolidation to suggest pneumonia. There are multiple bilateral small solid nodules (greater than 20), for example right middle lobe, 6 millimeters (3/50), and left lower lobe, 6 millimeters (3/58). Small focus peripheral nodularity in the superior most aspect of the visualized trachea may reflect mucous. The tracheostomy site is outside of the field of view. Chest wall and axilla: No mass or adenopathy. Bones: No suspicious bone lesions. Unremarkable for age. ABDOMEN AND PELVIS: Liver: Unremarkable. Gallbladder and bile ducts: Unremarkable. Pancreas: Unremarkable. Spleen: Unremarkable. Adrenal glands: Unremarkable. Kidneys: Multiple bilateral small foci of corticomedullary differentiation loss. There is also moderate bilateral perinephric stranding. GI tract: Unremarkable. Vascular structures: Unremarkable. Lymph nodes: Unremarkable. Peritoneum/Retroperitoneum/Abdominal Wall: Unremarkable. No free air or significant free fluid. Pelvic Organs: Severe urinary bladder wall thickening. Bones and superficial soft tissues: No suspicious bone lesions. Diffuse osseous demineralization. IMPRESSION: 1. Findings concerning for acute cystitis with an ascending urinary tract infection and bilateral acute pyelonephritis. No evidence of perinephric abscess formation. 2. Multiple bilateral solid pulmonary nodules (greater than 20), concerning for possible metastases in the setting of reported malignancy. Please note that all CT scans at this facility use dose modulation, iterative reconstruction, and/or weight-based dosing when appropriate to reduce radiation dose to as low as reasonably achievable. Dictated by Prasanth Amaro MD @ 10/24/2023 11:28:26 PM ----- ADDENDUM ----- These findings were discussed with Dr. Enamorado 11:29 PM on 10/24/2023 Dictated by Prasanth Amaro MD @ Oct 24 2023 11:34PM (Electronically Signed) For Patients: As a result of the Century Cures Act, medical imaging exams and procedure reports are released immediately into your electronic medical record. You may view this report before your referring provider. If you have questions, please contact your health care provider. INDICATION: fever, unknown source, inc d/c from trach site, some abd pain, frequent urination. hx thyroid cancer. TECHNIQUE: CT chest, abdomen and pelvis acquired 100 cc Omnipaque 350 IV contrast. COMPARISON: None. FINDINGS: CHEST: Cardiovascular structures: Heart size is normal. Thoracic aorta and main pulmonary artery are normal in caliber. Mediastinum and aaron: No mass or adenopathy. Lungs and pleura: No consolidation to suggest pneumonia. There are multiple bilateral small solid nodules (greater than 20), for example right middle lobe, 6 millimeters (3/50), and left lower lobe, 6 millimeters (3/58). Small focus peripheral nodularity in the superior most aspect of the visualized trachea may reflect mucous. The tracheostomy site is outside of the field of view. Chest wall and axilla: No mass or adenopathy. Bones: No suspicious bone lesions. Unremarkable for age. ABDOMEN AND PELVIS: Liver: Unremarkable. Gallbladder and bile ducts: Unremarkable. Pancreas: Unremarkable. Spleen: Unremarkable. Adrenal glands: Unremarkable. Kidneys: Multiple bilateral small foci of corticomedullary differentiation loss. There is also moderate bilateral perinephric stranding. GI tract: Unremarkable. Vascular structures: Unremarkable. Lymph nodes: Unremarkable. Peritoneum/Retroperitoneum/Abdominal Wall: Unremarkable. No free air or significant free fluid. Pelvic Organs: Severe urinary bladder wall thickening. Bones and superficial soft tissues: No suspicious bone lesions. Diffuse osseous demineralization. IMPRESSION: 1. Findings concerning for acute cystitis with an ascending urinary tract infection and bilateral acute pyelonephritis. No evidence of perinephric abscess formation. 2. Multiple bilateral solid pulmonary nodules (greater than 20), concerning for possible metastases in the setting of reported malignancy. Assessment and Plan Assessment and plan (1) Pyelonephritis: Problem comment: Getting worse with systemic illness despite IV antibiotics, ceftriaxone, and oral antibiotic, Cipro, started yesterday. Admit for ongoing IV antibiotics and as needed fluid resuscitation. Blood pressures have been soft so will withhold lisinopril. IV fluids if unable to tolerate adequate p.o. food intake. Status: Acute (2) Diabetes mellitus: Problem comment: Blood sugars have been high likely due to acute illness. Will hold metformin and continue Lantus and add sliding scale insulin. Resume metformin when getting better and taking p.o. Status: Acute (3) Lower urinary tract symptoms (LUTS): Problem comment: Chronic problem which is probably worse with current symptoms. Probably would benefit from outpatient urology evaluation Status: Acute (4) Hypertension: Problem comment: Hold lisinopril pending improvement in blood pressure Status: Acute Plan 53-year-old male with diabetes and metastatic thyroid cancer now presenting with worsening illness with bilateral pyelonephritis and cystitis. Admit for IV antibiotics and if necessary IV fluids. Close monitoring. Adjust hypertensive in diabetes management based on his clinical course. Anticipate discharge in 2- 3 days pending cultures and clinical improvement Total Time Spent Total Time Spent: Total time spent today is 75 minutes in evaluation and management
[2023-10-25] MEDS: ACETAMINOPHEN 325 MG TABLET 650 MG PO (19:56)
[2023-10-25] MEDS: METOPROLOL SUCCINATE (XL) 25 MG TAB PO (21:16)
[2023-10-25] MEDS: ATORVASTATIN CALCIUM 40 MG TABLET 80 MG PO (21:16)
[2023-10-25] MEDS: INSULIN ASPART 100 UNIT/ML SUBCUT (21:17)
[2023-10-25] MEDS: ENOXAPARIN 40 MG/0.4 ML INJ SUBCUT (21:17)
[2023-10-25] MEDS: SODIUM CHLORIDE 0.9 % (FLUSH) 10 ML SYRINGE 5 ML IVF (21:17)
[2023-10-25] MEDS: IBUPROFEN 400 MG TABLET PO (22:47)
[2023-10-25] MEDS: PIPERACILLIN/TAZOBACTAM 3.375 GM in 0.9 % SODIUM CHLORIDE Mini-bag 100 ML IVPB (22:47)
[2023-10-26] VITALS (14 sets, daily range): BP systolic 103–119; BP diastolic 63–72; PULSE 65–87; RESP 16–22; TEMP 36.9–37.9; O2SAT 96–97
[2023-10-26] MEDS: ACETAMINOPHEN 325 MG TABLET 650 MG PO ×4 (00:58→21:47)
[2023-10-26] MEDS: IBUPROFEN 400 MG TABLET PO ×2 (03:00→13:03)
[2023-10-26] MEDS: PIPERACILLIN/TAZOBACTAM 3.375 GM in 0.9 % SODIUM CHLORIDE Mini-bag 100 ML IVPB ×4 (05:10→22:35)
[2023-10-26] MEDS: LEVOTHYROXINE 100 MCG TABLET 200 MCG PO (06:01)
[2023-10-26 06:25] LABS: Chloride* 104 mmol/L (96-114); Sodium* 134 mmol/L (135-149)
[2023-10-26 06:26] LABS: Potassium* 3.9 mmol/L (3.6-5.1)
[2023-10-26 06:28] LABS: Creatinine* 0.7 mg/dL (0.5-1.5); Est. Creatinine Clearance* 138.63; Estimated Glomerular Filt Rate 109 ml/min
[2023-10-26 06:29] LABS: Anion Gap 6 mEq/L (7-15); Blood Urea Nitrogen* 12 mg/dL (7-30); Calcium* 8.2 mg/dL (8.4-10.6); Carbon Dioxide* 24 mmol/L (20-32); Glucose* 309 mg/dL (60-115)
[2023-10-26 06:35] LABS: Basophils Percent Auto 0.2 % (0.0-3.0); Eosinophils Percent Auto 0.9 % (0.0-7.0); Hematocrit 28.7 % (37.0-53.0); Hemoglobin* 9.5 gm/dL (13.5-17.5); Immature Granulocytes Pct Auto 1.9 %; Lymphocytes Percent Auto 7.1 % (20-44); Mean Corpuscular HGB Conc 33 gm/dL (32-36); Mean Corpuscular Hemoglobin 30 pg (26-34); Mean Corpuscular Volume 91 fL (80-100); Monocytes Percent Auto 12.8 % (0.0-11.0); Neutrophils Percent Auto 77.1 % (42.0-72.0); Platelet Count* 231 K/uL (140-440); RDW Coefficient of Variation % 12.8 % (11.5-15.5); Red Blood Count 3.17 m/uL (4.30-5.90); White Blood Count* 12.96 K/uL (4.50-11.00)
--- NOTE | 2023-10-26 06:53 | PC.NURSE ---
End of shift note ([id number]): Patient pleasant, alert and oriented. Independent in room. Temp elevated to 101.7 last night. Recheck temp 99.4. Temp 98.6 at 0600.?Alternated Tylenol and Ibuprofen. Denied pain.?
[2023-10-26 07:11] LABS: C Reactive Protein* 26.4 mg/dL (0.5-1.0)
[2023-10-26 07:13] LABS: Slide Review Reflex No
[2023-10-26] MEDS: INSULIN ASPART 100 UNIT/ML SUBCUT ×4 (07:39→20:54)
[2023-10-26] MEDS: SODIUM CHLORIDE 0.9 % (FLUSH) 10 ML SYRINGE 5 ML IVF ×2 (09:13→20:56)
[2023-10-26] MEDS: ASPIRIN 81 MG TABLET EC PO (09:13)
[2023-10-26] MEDS: METOPROLOL SUCCINATE (XL) 25 MG TAB PO (09:13)
[2023-10-26] MEDS: INSULIN GLARGINE,HUM.REC.ANLOG 100 UNIT/ML INSULN.PEN 22 UNIT SUBCUT (09:14)
--- NOTE | 2023-10-26 10:37 | P.IMPN_ITS ---
Progress Note: A&P Assessment and plan (1) Pyelonephritis: Problem details: Getting worse with systemic illness despite IV antibiotics, ceftriaxone, and oral antibiotic, Cipro, started yesterday Leukocytosis improving, CRP marginally improved Urine culture growing > 100,000 E coli, resistant to ceftriaxone, intermediate response to Cipro which makes sense as to why he failed outpatient therapy Continue IV Zosyn, transitioning to oral Bactrim on discharge, hopefully tomorrow Status: Acute (2) Diabetes mellitus: Problem details: Blood sugars have been high likely due to acute illness. Resume Lantus 22 units at bedtime, continue insulin sliding scale, glucose checks ACHS Hold metformin, resuming upon discharge Status: Acute (3) Lower urinary tract symptoms (LUTS): Problem details: Chronic problem which is probably worse with current symptoms. Probably would benefit from outpatient urology evaluation Status: Acute (4) Hypertension: Problem details: Resume home medications with parameters Status: Acute (5) Hyperlipidemia: Problem details: Continue statin Status: Acute (6) Hypothyroidism: Problem details: Continue levothyroxine Status: Acute (7) Thyroid cancer: Problem details: Metastatic papillary thyroid cancer. Status post thyroidectomy at [place] 09/02/2023, surgery complicated and trach required. Status: Acute Plan Continue IV antibiotics, transitioning to oral Bactrim, likely discharge tomorrow Time Spent With Patient Total time spent: Total time spent caring for the patient today was 45 minutes. This includes time spent for the visit reviewing the chart, time spent during the visit, time spent after the visit and documentation and planning in coordination of care. Subjective Date Seen: 10/26/23 Interval history: Patient is seen lying in bed this morning. Reports still feeling pretty poorly. Fever of 101.7? around 11:00 p.m. last night. Tolerating orals without nausea vomiting. Urination improving, still some frequency, no longer having pain. WBC trending down, CRP slowly improving. Exam Narrative: Exam Narrative: PHYSICAL EXAM General: Pleasant, conversant, NAD HEENT: Normocephalic, atraumatic, sclera white, EOMI, oral mucosa moist Cardiovascular: RRR, S1S2. No pitting edema Pulmonary: CTA bilaterally without rhonchi, rales, expiratory wheezes. No dyspnea on room air Abdominal: Soft, nondistended, NTTP Neurological: Alert, answering questions appropriately, cranial nerves intact, no focal findings Extremities: No gross joint deformity or swelling. AROMI. Neurovascularly intact Skin: Warm, dry. Const: Vital Signs, click to edit/add: Vital Signs - 24 hr 10/25/23 16:45 10/25/23 17:20 10/25/23 17:35 Temperature 99.7 F H Pulse Rate 77 Pulse Rate [Apical ] Pulse Rate [Pulse Oximeter] 95 Pulse Rate [Right Pulse Oximeter] Respiratory Rate 24 16 Blood Pressure 104/59 L Blood Pressure [Le ft Arm] Blood Pressure [Ri ght Upper Arm] 104/70 Pulse Oximetry 98 96 [facility] 10/25/23 18:03 10/25/23 18:17 10/25/23 19:00 Temperature 98.4 F Pulse Rate 75 76 Pulse Rate [Apical ] Pulse Rate [Pulse Oximeter] Pulse Rate [Right Pulse Oximeter] 89 Respiratory Rate 16 14 18 Blood Pressure 119/63 132/64 Blood Pressure [Le ft Arm] 126/68 Blood Pressure [Ri ght Upper Arm] Pulse Oximetry 99 97 99 [facility] 10/25/23 19:11 10/25/23 19:11 10/25/23 21:22 Temperature 98.4 F 101 F H Pulse Rate Pulse Rate [Apical ] 74 Pulse Rate [Pulse Oximeter] Pulse Rate [Right Pulse Oximeter] Respiratory Rate 20 18 Blood Pressure Blood Pressure [Le ft Arm] 131/73 Blood Pressure [Ri ght Upper Arm] Pulse Oximetry 99 99 Oxygen Delivery [facility] Room Air Room Air 10/25/23 22:47 10/25/23 23:00 10/26/23 00:10 Temperature 101.0 F H 101.7 F H 99.4 F Pulse Rate Pulse Rate [Apical ] Pulse Rate [Pulse Oximeter] Pulse Rate [Right Pulse Oximeter] 87 Respiratory Rate 18 Blood Pressure Blood Pressure [Le ft Arm] 115/62 Blood Pressure [Ri ght Upper Arm] Pulse Oximetry 94 [facility] 10/26/23 00:17 10/26/23 02:56 10/26/23 06:00 Temperature 99.4 F 98.6 F 98.6 F Pulse Rate Pulse Rate [Apical ] Pulse Rate [Pulse Oximeter] Pulse Rate [Right Pulse Oximeter] 67 Respiratory Rate 22 Blood Pressure Blood Pressure [Le ft Arm] 108/65 Blood Pressure [Ri ght Upper Arm] Pulse Oximetry 96 Oxygen Delivery Me thod Room Air 10/26/23 07:00 Temperature 98.5 F Pulse Rate Pulse Rate [Apical ] Pulse Rate [Pulse Oximeter] Pulse Rate [Right Pulse Oximeter] 65 Respiratory Rate 16 Blood Pressure Blood Pressure [Le ft Arm] 119/68 Blood Pressure [Ri ght Upper Arm] Pulse Oximetry 97 Oxygen Delivery Me thod Room Air Labs Labs: Laboratory Results - last 24 hr 10/25/23 10/26/23 17:10 05:54 WBC 15.25 H 12.96 H RBC 3.59 L 3.17 L Hgb 10.6 L 9.5 L Hct 31.8 L 28.7 L MCV 89 91 MCH 30 30 MCHC 33 33 RDW Coeff of Shimon 12.7 12.8 Plt Count 246 231 Neut % (Auto) 85.3 H 77.1 H Lymph % (Auto) 3.8 L 7.1 L Wetzel % (Auto) 9.8 12.8 H Eos % (Auto) 0.1 0.9 Baso % (Auto) 0.1 0.2 Neut # (Auto) 13.00 H 10.00 H Lymph # (Auto) 0.60 L 0.90 Wetzel # (Auto) 1.50 H 1.70 H Eos # (Auto) 0.00 0.10 Baso # (Auto) 0.00 0.00 Abs Immat Gran (auto) 0.10 0.20 Imm/Tot Granulo (auto) 0.9 1.9 Sodium 131 L 134 L Potassium 3.8 3.9 Chloride 98 104 Carbon Dioxide 24 24 Anion Gap 9 6 L BUN 11 12 Creatinine 0.7 0.7 Estimated Creat Clear 138.63 138.63 Estimated GFR 109 109 Glucose 284 H 309 H Calcium 8.9 8.2 L C-Reactive Protein 26.5 H 26.4 H
--- NOTE | 2023-10-26 11:43 | NUTR.NU ---
RDN with diet education related to diabetic diet. Patient admitted for fevers, bilateral pyelonephritis. Patient with a history of metastatic papillary thyroid cancer, status post thyroidectomy at [place] 09/02/2023. Patient denies chewing or swallowing difficulties. Current weight 274 lb 1.6oz; height 6ft 2in; BMI 35.2 kg/m2. Current diet is diabetic. Meal intake since admit is 100%. RDN visited with patient who declined weight changes recently. He tries to follow a diabetic diet at home and focus on protein at each meal. He avoids snacky foods including chips. He declined diet education at this time. RDN encouraged patient to let staff know if he has any questions or concerns. RDN will continue to monitor.
--- NOTE | 2023-10-26 14:30 | PC.NURSE ---
End of shift note ([id number]): Pt A&Ox3, pleasant, and cooperative. Indep in room and in the halls.?VSS. LS COA.?Denies N/V/CP/SOB. Pt reported no pain throughout the shift.?Alternated Tylenol and Ibuprofen. Temp @ 1300: 99.6. Recheck @ 1430: 99.2 Continuing to monitor, pt appears resting with call light within reach. ?
[2023-10-26] MEDS: ENOXAPARIN 40 MG/0.4 ML INJ SUBCUT (20:53)
[2023-10-26] MEDS: ATORVASTATIN CALCIUM 40 MG TABLET 80 MG PO (20:53)
[2023-10-26] MEDS: METOPROLOL TARTRATE 25 MG TABLET PO (20:53)
--- NOTE | 2023-10-26 23:20 | PC.NURSE ---
End of Shift: Patient pleasant and cooperative, A&O. VSS, T max this shift was 100.2, I gave PRN Tylenol, which then lowered it to 99.0. Patient denies pain this shift. Independent in room.
[2023-10-27 04:20] VITALS: BP 118/65; PULSE 74; RESP 16; TEMP 37.8; O2SAT 97
[2023-10-27] MEDS: PIPERACILLIN/TAZOBACTAM 3.375 GM in 0.9 % SODIUM CHLORIDE Mini-bag 100 ML IVPB ×2 (04:34→11:25)
[2023-10-27 04:38] VITALS: TEMP 37.8
[2023-10-27] MEDS: ACETAMINOPHEN 325 MG TABLET 650 MG PO ×2 (04:38→12:11)
[2023-10-27] MEDS: LEVOTHYROXINE 100 MCG TABLET 200 MCG PO (05:51)
[2023-10-27 05:56] VITALS: TEMP 36.9
[2023-10-27 06:30] LABS: Basophils Absolute Auto 0.01 K/uL (0.00-0.30); Basophils Percent Auto 0.1 % (0.0-3.0); Eosinophils Absolute Auto 0.16 K/uL (0.00-0.50); Eosinophils Percent Auto 1.8 % (0.0-7.0); Hematocrit 28.7 % (37.0-53.0); Hemoglobin* 9.5 gm/dL (13.5-17.5); Immature Granulocytes Abs Auto 0.06 K/uL (0.00-0.30); Immature Granulocytes Pct Auto 0.7 %; Lymphocytes Percent Auto 11.2 % (20-44); Mean Corpuscular HGB Conc 33 gm/dL (32-36); Mean Corpuscular Hemoglobin 30 pg (26-34); Mean Corpuscular Volume 89 fL (80-100); Monocytes Percent Auto 10.1 % (0.0-11.0); Neutrophils Percent Auto 76.1 % (42.0-72.0); Platelet Count* 295 K/uL (140-440); RDW Coefficient of Variation % 12.9 % (11.5-15.5); Red Blood Count 3.21 m/uL (4.30-5.90); White Blood Count* 9.09 K/uL (4.50-11.00)
[2023-10-27 06:34] LABS: Slide Review Reflex No
--- NOTE | 2023-10-27 06:34 | PC.NURSE ---
End of shift note [id number]: Pt alert & oriented x 4 and able to make needs known. He is independent with transferring/ambulation and continent of bladder this shift. Pt noted to have temp of 99.6 with 2300 VS though had received PRN Tylenol before 2200. Temp noted to be 100.0 this morning with PRN Tylenol given. Temp noted to be 98.5 upon follow up approximately one hour later. Pt has been denying pain when asked. IV to L FA patent and SL. He continues on IV Zosyn.
[2023-10-27 06:43] LABS: Chloride* 105 mmol/L (96-114); Potassium* 3.8 mmol/L (3.6-5.1); Sodium* 136 mmol/L (135-149)
[2023-10-27 06:46] LABS: Creatinine* 0.7 mg/dL (0.5-1.5); Est. Creatinine Clearance* 138.63; Estimated Glomerular Filt Rate 109 ml/min
[2023-10-27 06:47] LABS: Anion Gap 7 mEq/L (7-15); Blood Urea Nitrogen* 11 mg/dL (7-30); Calcium* 8.1 mg/dL (8.4-10.6); Carbon Dioxide* 24 mmol/L (20-32); Glucose* 154 mg/dL (60-115)
[2023-10-27 07:12] LABS: C Reactive Protein* 26.2 mg/dL (0.5-1.0)
[2023-10-27 07:58] VITALS: BP 122/78; PULSE 82; RESP 18; TEMP 37.2; O2SAT 99
[2023-10-27] MEDS: ASPIRIN 81 MG TAB.CHEW PO (09:01)
[2023-10-27] MEDS: METOPROLOL TARTRATE 25 MG TABLET PO (09:01)
[2023-10-27] MEDS: INSULIN ASPART 100 UNIT/ML SUBCUT (09:02)
[2023-10-27] MEDS: INSULIN GLARGINE,HUM.REC.ANLOG 100 UNIT/ML INSULN.PEN 22 UNIT SUBCUT (09:02)
--- NOTE | 2023-10-27 11:51 | P.DS_ITS ---
DS: Providers Provider Date Seen: 10/27/23 Date of admission: 10/25/23 18:34 Primary care physician: Not a Local Provider Admitting Clinician: Carlos Arrieta MD Attending Physician on discharge: Gilda Hernandes [facility], PA-C [facility] Hospitalist Date of Discharge: 10/27/23 DS: Diagnosis Discharge Diagnosis (1) Pyelonephritis: Status: Acute Problem details: Prior to admission, getting worse with systemic illness despite IV antibiotics, ceftriaxone, and oral antibiotic, Cipro. Urine culture growing > 100,000 E coli, resistant to ceftriaxone, intermediate response to Cipro which makes sense as to why he failed outpatient therapy Initiated on IV Zosyn on admission, transitioned to oral Bactrim on discharge. Close outpatient follow-up with PCP for resolution. (2) Diabetes mellitus: Status: Acute Problem details: Blood sugars have been high likely due to acute illness. Has been off of his Ozempic for some time now as well. Resumed Lantus 22 units at bedtime. Held metformin, resuming upon discharge. (3) Lower urinary tract symptoms (LUTS): Status: Acute Problem details: Chronic problem which is probably worse with current symptoms. Recommend outpatient follow-up with [facility] (4) Hypertension: Status: Acute Problem details: Continued on home medications (5) Hyperlipidemia: Status: Acute Problem details: Continued statin (6) Hypothyroidism: Status: Acute Problem details: Continued levothyroxine (7) Thyroid cancer: Status: Acute Problem details: Metastatic papillary thyroid cancer. Status post thyroidectomy at [facility] 09/02/2023, surgery complicated and trach required. CT shows multiple bilateral small solid nodules (greater than 20), for example right middle lobe, 6 millimeters (3/50), and left lower lobe, 6 millimeters (3/58). Plan to start radioactive iodine, has follow up appointments October (8) Cancer with pulmonary metastases: Status: Acute Problem details: Noted, management as above DS: Summary Hospital Course Hospital Course: [age] year old male admitted to the medical floor for further management pyelonephritis following failed outpatient therapy. Course of care and details as noted above. Urine culture grew E coli with sensitivities reviewed, resistant/intermediate to outpatient therapies. Discharged with oral Bactrim DS based on sensitivities. Close outpatient follow-up with PCP with test of cure. Outpatient follow-up with Urology recommended. Remainder of chronic medical comorbidities were monitored and managed with home medications. Status at Discharge Functional status at discharge: independent ambulation Overall status at discharge: patient is back to baseline Time Spent with Patient Time attestation: Total time spent providing and/or coordinating discharge services: Time spent: Greater than 30 minutes Exam Narrative: Exam Narrative: PHYSICAL EXAM General: Pleasant, conversant, NAD Cardiovascular: RRR Pulmonary: No dyspnea Neurological: Alert, answering questions appropriately Skin: Warm, dry. Const: Vital Signs, click to edit/add: Vital Signs - 24 hr 10/26/23 13:03 10/26/23 15:00 10/26/23 17:08 Temperature 99.6 F 100.2 F H 100.2 F H Pulse Rate [Right Pulse Oximeter] 73 Respiratory Rate 18 Blood Pressure [Le ft Arm] 104/72 Pulse Oximetry 97 Oxygen Delivery Hi thod Room Air 10/26/23 18:12 10/26/23 18:39 10/26/23 19:23 Temperature 99.0 F 99.0 F Pulse Rate [Right Pulse Oximeter] 73 69 Respiratory Rate 18 18 Blood Pressure [Le ft Arm] 112/64 Pulse Oximetry 97 Oxygen Delivery Hi thod Room Air 10/26/23 23:00 10/26/23 23:30 10/26/23 23:30 Temperature 99.6 F 99.6 F Pulse Rate [Right Pulse Oximeter] 87 87 Respiratory Rate 16 16 Blood Pressure [Le ft Arm] 117/70 Pulse Oximetry 97 [facility] 10[facility]27/23 04:20 10/27/23 04:38 10/27/23 05:56 Temperature 100.0 F H 100.0 F H 98.5 F Pulse Rate [Right Pulse Oximeter] 74 Respiratory Rate 16 Blood Pressure [Le ft Arm] 118/65 Pulse Oximetry 97 Oxygen Delivery Hi thod Room Air 10/27/23 07:58 Temperature 98.9 F Pulse Rate [Right Pulse Oximeter] 82 Respiratory Rate 18 Blood Pressure [Le ft Arm] 122/78 Pulse Oximetry 99 Oxygen Delivery Hi thod Room Air DS: Data Data Completed and Pending Labs on day of discharge: Labs from last 24 hours 10/27/23 05:52 WBC 9.09 RBC 3.21 L Hgb 9.5 L Hct 28.7 L MCV 89 MCH 30 MCHC 33 RDW Coeff of Shimon 12.9 Plt Count 295 Neut % (Auto) 76.1 H Lymph % (Auto) 11.2 L [place] % (Auto) 10.1 Eos % (Auto) 1.8 Baso % (Auto) 0.1 Neut # (Auto) 6.90 Lymph # (Auto) 1.00 [place] # (Auto) 0.90 Eos # (Auto) 0.16 Baso # (Auto) 0.01 Abs Immat Gran (auto) 0.06 Imm/Tot Granulo (auto) 0.7 Sodium 136 Potassium 3.8 Chloride 105 Carbon Dioxide 24 Anion Gap 7 BUN 11 Creatinine 0.7 Estimated Creat Clear 138.63 Estimated GFR 109 Glucose 154 H Calcium 8.1 L C-Reactive Protein 26.[address] Chest/Ab/Pelvis: Attestation: I have reviewed the pertinent imaging results. Radiologist's impression: CT chest, abdomen and pelvis acquired 100 cc Omnipaque 350 IV contrast. COMPARISON: None. FINDINGS: CHEST: Cardiovascular structures: Heart size is normal. Thoracic aorta and main pulmonary artery are normal in caliber. Mediastinum and aaron: No mass or adenopathy. Lungs and pleura: No consolidation to suggest pneumonia. There are multiple bilateral small solid nodules (greater than 20), for example right middle lobe, 6 millimeters (3/50), and left lower lobe, 6 millimeters (3/58). Small focus peripheral nodularity in the superior most aspect of the visualized trachea may reflect mucous. The tracheostomy site is outside of the field of view. Chest wall and axilla: No mass or adenopathy. Bones: No suspicious bone lesions. Unremarkable for age. ABDOMEN AND PELVIS: Liver: Unremarkable. Gallbladder and bile ducts: Unremarkable. Pancreas: Unremarkable. Spleen: Unremarkable. Adrenal glands: Unremarkable. Kidneys: Multiple bilateral small foci of corticomedullary differentiation loss. There is also moderate bilateral perinephric stranding. GI tract: Unremarkable. Vascular structures: Unremarkable. Lymph nodes: Unremarkable. Peritoneum/Retroperitoneum/Abdominal Wall: Unremarkable. No free air or significant free fluid. Pelvic Organs: Severe urinary bladder wall thickening. Bones and superficial soft tissues: No suspicious bone lesions. Diffuse osseous demineralization. IMPRESSION: 1. Findings concerning for acute cystitis with an ascending urinary tract infection and bilateral acute pyelonephritis. No evidence of perinephric abscess formation. 2. Multiple bilateral solid pulmonary nodules (greater than 20), concerning for possible metastases in the setting of reported malignancy. Please note that all CT scans at this facility use dose modulation, iterative reconstruction, and/or weight-based dosing when appropriate to reduce radiation dose to as low as reasonably achievable. Discharge Plan Discharge Disposition: Home, Self-Care Date of Admission: 10/25/23 18:34 Attending Provider on Discharge: Gilda Hernandes Primary Care Provider: Provider,Not a Local Condition: Stable Anticipated Discharge Date/Time: 10/27/23 10:55 Discharge Medications: New sulfamethoxazole-trimethoprim [Bactrim DS] 800-160 mg tablet 1 tab PO BID 7 Days Qty: 14 0RF Continued lisinopril 40 mg tablet 40 mg PO DAILY atorvastatin 80 mg tablet 80 mg PO DAILY calcitriol 0.5 mcg capsule 0.5 mcg PO DAILY levothyroxine [Euthyrox] 200 mcg tablet 200 mcg PO DAILY aspirin 81 mg tablet,chewable 81 mg PO DAILY metformin 500 mg tablet extended release 24 hr 500 mg PO BIDWM metoprolol tartrate 25 mg tablet 25 mg PO BID insulin glargine [Lantus Solostar U-100 Insulin] 100 unit/mL (3 mL) insulin pen 22 unit SUBCUT DAILY Discontinued ciprofloxacin HCl 500 mg tablet 500 mg PO BID Qty: 13 0RF Discharge Orders: Discharge Order (Routine); Ordered 10/27/23 Ordered By: Gilda Hernandes Patient Education: Sulfamethoxazole/Trimethoprim (By mouth) (Bactrim, Bactrim DS,..., Urinary Tract Infection in Men (GEN) Additional Instructions: Do not continue to take the Cipro you were prescribed as this is not an effective antibiotic. Take the full 7 days of Bactrim DS. Continue Tylenol or Ibuprofen as needed. Close outpatient follow up with PCP. Recommend outpatient follow up with [facility]. Activity Level: No Restrictions Discharge Diet: Regular Follow Up Appointments: Kat Quintero MD [Referring] - 10/30/23 9:10 am ([facility] for follow-up, and PCP will need to schedule follow up with [facility].) Provider,Not a Local [Primary Care Provider] - (Sees a PA-C at [facility] and has an appt on 11/09. Please see if this can be moved up in the next 3-5 days? PCP will need to schedule follow up with [facility].) Forms: [email or web address] Info Instructions
--- NOTE | 2023-10-27 15:42 | PC.NURSE ---
IV dc'd intact lt FA. reviewed dc instructions and copies sent with pt. Reviewed Personal belongings.
== END 2023-10-27 12:15 | disposition home or self-care (01) | DRG 690 ==
LOC: ED 17:57 → MEDSURG 18:28
PROVIDERS: Admitting Provider Family Medicine; Emergency Provider Family Medicine; Visit Provider Family Medicine
DX: N10 Acute pyelonephritis (principal); C78.02 Secondary malignant neoplasm of left lung; C78.01 Secondary malignant neoplasm of right lung; Z16.24 Resistance to multiple antibiotics; E11.9 Type 2 diabetes mellitus without complications; R39.9 Unspecified symptoms and signs involving the genitourinary system; I10 Essential (primary) hypertension; Z79.84 Long term (current) use of oral hypoglycemic drugs; Z79.4 Long term (current) use of insulin; E78.5 Hyperlipidemia, unspecified; C73 Malignant neoplasm of thyroid gland; E03.9 Hypothyroidism, unspecified; I25.10 Atherosclerotic heart disease of native coronary artery without angina pectoris; D64.9 Anemia, unspecified; B96.20 Unspecified Escherichia coli [E. coli] as the cause of diseases classified elsewhere
CPT/HCPCS: 36415; 80048; 82962; 85025; 86140; 94761; 99284; 99285; A9270; J0743; J1650; J1815; J2543; J7030

== ENCOUNTER 2024-05-19 14:00 | Outpatient (RCR) | payer BC, SELFPAY | END 2024-05-26 09:31 | disposition home or self-care (01) | PROVIDERS: Visit Provider Physician Assistant | DX: M54.12 Radiculopathy, cervical region (principal); R29.3 Abnormal posture; Z51.89 Encounter for other specified aftercare | CPT/HCPCS: 97110; 97140; 97162 ==